=== PATIENT | female | born 1995 | race Caucasian/White ===

== ENCOUNTER → 2018-04-20 | Outpatient (CLI) | payer OTHER ==
--- NOTE | 2018-04-20 15:17 | RADIOLOGY REPORT (SQ) ---
EXAM DESCRIPTION: LUMBAR SPINE COMPLETE COMPLETED DATE/TIME: 04/20/2018 2:51 pm REASON FOR STUDY: LBP M54.5 LOW BACK PAIN COMPARISON: None. NUMBER OF VIEWS: Five views including obliques. TECHNIQUE: AP, lateral, oblique, and sacral radiographic images acquired of the lumbar spine. LIMITATIONS: None. FINDINGS: MINERALIZATION: Normal. SEGMENTATION: Normal. No transitional anatomy. ALIGNMENT: Normal. VERTEBRAE: Maintained height. No fracture or worrisome bone lesion. DISCS: Preserved height. No significant osteophytes or end plate irregularity. POSTERIOR ELEMENTS: Pedicles and facets are intact. No pars defect or posterior arch defects. HARDWARE: None in the spine. PARASPINAL SOFT TISSUES: Normal. PELVIS: SI joints intact. OTHER: No other significant finding. IMPRESSION: NORMAL 5 VIEW LUMBAR SPINE. TECHNICAL DOCUMENTATION: JOB ID: [id number] [employer]- All Rights Reserved Reading location - IP/workstation name: [email or web address]
== END ==
LOC: OD 14:36
PROVIDERS: ATTEND Nurse Practitioner Family
DX: M54.5 Low back pain (principal)
CPT/HCPCS: 72110

== ENCOUNTER → 2019-10-11 | Outpatient (CLI) | payer OTHER ==
--- NOTE | 2019-10-11 12:23 | WOMENS IMAGING REPORT ---
EXAM DESCRIPTION: TRANSVAGINAL ULTRASOUND IMAGES COMPLETED DATE/TIME: 10/11/2019 11:28 am REASON FOR STUDY: R10.2 PELVIC AND PERINEAL PAIN R10.2 PELVIC AND PERINEAL PAIN COMPARISON: None. TECHNIQUE: Dynamic and static grayscale images acquired of the pelvis via transvaginal approach and recorded on PACS. Additional selected color Doppler and spectral images recorded. LIMITATIONS: None. FINDINGS: UTERUS: Retroverted uterus. The uterus appears to be arcuate. ENDOMETRIAL STRIPE: No focal or generalized thickening. No masses. CERVIX: No nabothian cysts. RIGHT OVARY AND DOPPLER: Normal size. No worrisome masses. Normal arterial vascular flow without evid ence for torsion. LEFT OVARY AND DOPPLER: Normal size. No worrisome masses. 4.2 cm cyst. Normal arterial vascular arlen w without evidence for torsion. FREE FLUID: None noted. OTHER: No other significant finding. MEASUREMENTS: UTERUS: 7.5 x 3.8 x 4.6 cm. ENDOMETRIAL STRIPE: 8 mm. RIGHT OVARY: 2.1 x 1.6 x 1.8 cm. LEFT OVARY: 4.2 x 3 x 4.7 cm. IMPRESSION: Arcuate uterus. Left ovarian cyst that is almost certainly benign. No additional imagi ng is required for this. TECHNICAL DOCUMENTATION: JOB ID: [id number] [employer]- All Rights Reserved Rev Reading location - IP/workstation name: [email or web address]
== END ==
LOC: WI 10:38
PROVIDERS: ATTEND Nurse Practitioner Family
DX: Q51.810 Arcuate uterus (principal); N83.202 Unspecified ovarian cyst, left side; R10.2 Pelvic and perineal pain
CPT/HCPCS: 76830